=== PATIENT | female | born 1960 | race Two or more races ===

== ENCOUNTER → 2016-12-17 | Outpatient (CLI) | payer MEDICAID ==
--- NOTE | 2016-12-17 20:56 | MR ---
MRI of the Right Shoulder History: Shoulder pain. Technique: Axial proton density, oblique coronal, and sagittal T1 and T2 images were acquired. Findings: High grade near full thickness rim-radial tear involves the anterior distal fibers of supra spinatus at the greater tuberosity (images 10-12 series 6). There is marked near complete undersurfac e tearing of the supraspinatus. Infraspinatus tendon appears intact with bursal surface tendinosis. There is also a small undersurfac e partial-thickness tear, with an associated longitudinal delaminatory tear of the infraspinatus tend on, with fluid tracking proximally along the long axis of the tendon. Subscapularis is intact, with attenuation and partial tear of distal fibers. Teres minor is intact. Marked focal long head biceps tendinosis and peritendinitis is present at the level of the bicipital tubercle and superiorly through the rotator interval to the intra-articular aspect. Degenerative mace ration and fraying of the superior labrum underneath the biceps attachment is also noted, extending p osteriorly to the 10:00 position. Remainder of the glenoid labrum is intact, and glenohumeral articul ar cartilage is intact. Acromioclavicular degenerative hyperostosis is moderate in severity. IMPRESSION: 1. High-grade near-complete rim-rent tear involving the anterior distal fibers of supraspinatus at th e greater tuberosity footprint. 2. Partial undersurface distal infraspinous tendon tear, associated with longitudinal delaminatory sp lit component tracking proximally. 3. Partial distal subscapularis tendon tear. 4. Marked long head biceps tendinosis and thinning through the rotator interval and intra-articular a spect. Associated degenerative maceration and fraying superior labrum.
== END ==
LOC: FIMAGING 18:27
PROVIDERS: ATTEND Internal Medicine
DX: M25.511 Pain in right shoulder (principal); M75.111 Incomplete rotator cuff tear or rupture of right shoulder, not specified as traumatic; M75.21 Bicipital tendinitis, right shoulder

== ENCOUNTER → 2017-07-15 | Outpatient (CLI) | payer MEDICAID | LOC: FIMAGING 12:02 | PROVIDERS: ATTEND Internal Medicine | DX: Z12.31 Encounter for screening mammogram for malignant neoplasm of breast (principal) | CPT/HCPCS: G0202 ==

== ENCOUNTER → 2018-08-20 | Outpatient (CLI) | payer MEDICAID | LOC: FIMAGING 14:52 | PROVIDERS: ATTEND Nurse Practitioner Women's Health | DX: Z12.31 Encounter for screening mammogram for malignant neoplasm of breast (principal) ==